=== PATIENT | female | born 1995 | race Caucasian/White ===

== ENCOUNTER 2018-11-16 15:17 | Emergency (ER) | payer OTHER ==
[~2018-11-16] VITALS: Ht 180.3 cm; Wt 107.3 kg
[2018-11-16] MEDS ORDERED: prenatal vit (15:24)
[2018-11-16] MEDS ORDERED: ONDANSETRON 4 MG ORAL DISINTEGRATING TAB (Q0162 PER 1MG) PO ONE (18:00)
[2018-11-16] MEDS ORDERED: ACETAMINOPHEN 500 MG TAB PO ONE (18:00)
[2018-11-16] MEDS ORDERED: KEFL500C17 PO (19:43)
[2018-11-16] MEDS ORDERED: CEPHALEXIN 500 MG CAP PO ONE (19:45)
[2018-11-16 19:50] VITALS: BP 100/56
--- NOTE | 2018-11-16 19:57 | REPVR ---
EXAM: US After First Trimester, Transabdominal EXAM DATE/TIME: 11/16/2018 6:38 PM CLINICAL HISTORY: 23 years old, female; complicated by abdominal or pelvic pain; Right lower quadrant; Second trimester; Gestational age or lmp: [id number]; ; Additional info: 16 weeks, pelvic cramping TECHNIQUE: Imaging protocol: Real-time transabdominal obstetrical ultrasound of the maternal pelvis and a second or third trimester with image documentation. COMPARISON: No relevant prior studies available. FINDINGS: GESTATION: Gestation: Single fetus in the uterus. Heart rate: heart rate 155 beats per minute. Presentation: Currently in cephalic presentation. Placenta: Unremarkable. No subchorionic bleed. Right lateral. Amniotic fluid: Amniotic fluid is normal for gestational age. Head, face, and neck: Head, face, and neck anatomy are obscured by position. Heart: Heart is obscured by position. Abdomen: Abdominal anatomy is obscured by position. Umbilical cord and insertion: Umbilical cord insertion is obscured by position. Spine: Spinal anatomy is obscured by position. Extremities: Extremities are obscured by position. BIOMETRY: Estimated gestational age: Gestational age based on average ultrasound measurements is 16 weeks 2 days versus 16 weeks 4 days using LMP of 07/23/2018. Estimated due date: Estimated weight: Estimated weight is 156 g (38th percentile). Biparietal diameter: BPD 3.5 cm Head circumference: Head circumference 12.6 cm. Abdominal circumference: Abdominal circumference 10.5 cm. Femur length: Femur length 2.1 cm. MATERNAL: Uterus: Unremarkable. Cervix: Unremarkable. IMPRESSION: Unremarkable scan at 16 weeks 2 days-4 days as described above. Followup evaluation in 19-20 weeks can be performed for a detailed structural survey if clinically desired. Electronically signed by: Eric Quevedo On 11/16/2018 19:57:31 PM
== END 2018-11-16 19:54 | disposition home or self-care (01) ==
LOC: M ED 17:46
DX: N39.0 Urinary tract infection, site not specified (principal)
CPT/HCPCS: 76811; 81001; 87086; 99283; Q0162

== ENCOUNTER 2019-02-22 16:29 | Outpatient (CLI) | payer OTHER ==
[~2019-02-22] VITALS: Ht 177.8 cm; Wt 106.3 kg
[~2019-02-22 16:29] MED LIST: KEFL500C17 PO; prenatal vit
[2019-02-22 16:46] VITALS: BP 118/58
[2019-02-22 16:47] VITALS: BP 118/58
[2019-02-22 16:54] VITALS: BP 118/58
--- NOTE | 2019-02-22 17:55 | IPNPDOC ---
Obstetrical Progress Note Date of Service Feb 22, 2019 Subjective 23yo at 30+4wks presents to triage s/p fall at noon; presented to LND >4 hours from fall. Pt reports slipping on water and falling back on her glutes; she denies striking her abdomen. Pt reports +FM, denies LOF/VB/CTX. Pt thinks she may have pulled a muscle on her lower left abdomen when she braced her fall. Pt's complicated by obesity and migraines. Objective O: VSS; no pain with palpation of abdomen FHR 135, moderate variability, + accels, no decels noted Contraction x1, pt denies feeling anything, uterus soft by palpation Vital Signs Date Time Temp Pulse Resp B/P (MAP) Pulse Ox O2 Delivery O2 Flow Rate FiO2 02/22/19 16:54 97.8 79 16 118/58 (78) 98 Room Air Assessment Heart Rate Tracing: Category I Assessment and Plan Status: Reassuring Additional Comments A: 23yo with reassuring tracing, Category I, s/p fall on glutes. P: Pt discharged home with appropriate 3rd trimester precautions. Discussed safe medications and pain control options (tylenol, heat packs) Pt verbalized an understanding of all. BREE SHEEHAN CNM Feb 22, 2019 17:55
== END 2019-02-22 17:55 | disposition home or self-care (01) ==
LOC: M LDO 16:29
PROVIDERS: ATTEND Registered Nurse Maternal Newborn
DX: Z04.3 Encounter for examination and observation following other accident (principal); W01.0XXA Fall on same level from slipping, tripping and stumbling without subsequent striking against object, initial encounter; Y92.89 Other specified places as the place of occurrence of the external cause; Y93.89 Activity, other specified; Y99.8 Other external cause status; Z3A.30 30 weeks gestation of pregnancy
CPT/HCPCS: 59025; G0378; G0463

== ENCOUNTER 2019-04-28 19:29 | Outpatient (CLI) | payer OTHER ==
[~2019-04-28] VITALS: Ht 180.3 cm; Wt 112.4 kg
[2019-04-28 19:47] VITALS: BP 125/67
--- NOTE | 2019-04-28 22:13 | IPNPDOC ---
Text Note Date of Service The patient was seen on 04/28/19. NOTE patient is a 23 yo @ 39+5wks gestation presents with painful contractions. denies VB/LOF. +fm vitals: normal nad fht: 135/mod rosa/pos accel/no decel toco: irregular ctx ce: 06/04/3 (per nursing check) a/p patient not in labor. discussed s/s to return. f/u with clinic as scheduled. do cynede VS,[place], I+O VS, Beee, I+O Vital Signs Date Time Temp Pulse Resp B/P (MAP) Pulse Ox O2 Delivery O2 Flow Rate FiO2 04/28/19 19:47 97.2 114 125/67 (86) 98 ANGY YARBROUGH DO Apr 28, 2019 22:13
== END 2019-04-28 21:30 | disposition home or self-care (01) ==
LOC: M LDO 19:29
PROVIDERS: ATTEND Obstetrics & Gynecology
DX: O26.893 Other specified pregnancy related conditions, third trimester (principal); O47.1 False labor at or after 37 completed weeks of gestation; Z3A.39 39 weeks gestation of pregnancy
CPT/HCPCS: 59025; G0378; G0463

== ENCOUNTER 2019-05-05 14:58 | Inpatient (IN) | payer OTHER ==
[2019-05-05] VITALS (8 sets, daily range): BP systolic 109–129; BP diastolic 53–73
[~2019-05-05] VITALS: Ht 180.3 cm; Wt 111.9 kg
[2019-05-05] MEDS ORDERED: LR 1,000 ML IV SCH (15:44)
[2019-05-05] MEDS ORDERED: LACTATED RINGER'S 1000 ML IV STA (15:44)
[2019-05-05 16:46] LABS: HEMATOCRIT 36.8 % (36.0-47.0); HEMOGLOBIN 11.9 g/dl (12.0-15.5); MEAN CORPUSCULAR HGB CONC 32.3 g/dl (32.0-36.5); MEAN CORPUSCULAR VOLUME 83.4 fl (80.0-96.0); PLATELET COUNT, AUTOMATED 223 10^3/uL (150-450); RED BLOOD COUNT 4.41 10^6/uL (4.00-5.40); WHITE BLOOD COUNT 12.7 10^3/uL (4.0-10.0)
[2019-05-05] MEDS ORDERED: FENTANYL 2MCG/ML ROPIVACAINE 0.2% IN 0.9% NACL 100ML IVBAG As Ordered ONE (17:16)
[2019-05-05] MEDS ORDERED: ONDANSETRON 4MG/2ML VIAL (J2405) IV PRN (18:15)
[2019-05-05] MEDS ORDERED: EPIDURAL COMMENT XX SCH (18:15)
[2019-05-05] MEDS ORDERED: LACTATED RINGER'S 1000 ML IV PRN (18:15)
[2019-05-05] MEDS ORDERED: FENTANYL/ROPIVACAINE/NACL BAG 100 ML EPIDURAL SCH (18:15)
[2019-05-05] MEDS ORDERED: diphenhydrAMINE INJ 50MG/ML VIAL (J1200) IV PRN (18:15)
[2019-05-05] MEDS ORDERED: NALOXONE INJ 0.4 MG/1 ML VIAL (J2310) IV PRN (18:15)
[2019-05-05] MEDS ORDERED: REFRIGERATOR IV KEYS XX PRN (18:15)
[2019-05-05] MEDS ORDERED: ePHEDrine SULFATE 25 MG/5 ML(5MG/ML) SYRINGE IV PRN (18:15)
[2019-05-05] MEDS ORDERED: EPIDURAL/PCA KEYS XX PRN (18:15)
--- NOTE | 2019-05-05 18:30 | IPNPDOC ---
Text Note Date of Service The patient was seen on 05/05/19. NOTE Triage Note Padmini is comfortable with epidural, only feeling slight pain over her pubic area. Vitals wnl, afebrile Cat I FHRT with +accels, -decels, mod rosa [place]: ctx 2-4min SCE 6/80/-2, AROM performed with clear fluid noted Will continue to expectantly manage and closely observe Plan to re-check in 2 to 4 hours Safe to proceed Dr. Supriya Malone MD VS,[place], I+O VS, [place], I+O Laboratory Tests 05/05/19 16:32 Supriya Malone MD May 05, 2019 18:30
[2019-05-05] MEDS ORDERED: OXYTOCIN 30 UNITS IN 0.9% NaCl 500ML IV BAG (J2590) As Ordered ONE (20:17)
[2019-05-05] MEDS ORDERED: OXYTOCIN DRIP 30 UNITS in IV 1 EA IV SCH (20:42)
[2019-05-05] MEDS ORDERED: MEASLES,MUMPS,RUBELLA VACCINE INJ (MMR-II) (90707) SC SCH (20:45)
[2019-05-05] MEDS ORDERED: ACETAMINOPHEN TAB 650MG DOSE (2X325MG) PO PRN (20:45)
[2019-05-05] MEDS ORDERED: DIBUCAINE 1% OINTMENT 30GM TOP PRN (20:45)
[2019-05-05] MEDS ORDERED: DOCUSATE SODIUM 100 MG CAP PO PRN (20:45)
[2019-05-05] MEDS ORDERED: RHOGAM 300 MCG (1500 IU) INJ (J2790) IM SCH (20:45)
[2019-05-05] MEDS ORDERED: IBUPROFEN 600 MG TAB PO PRN (20:45)
--- NOTE | 2019-05-05 20:50 | DNPDOC ---
[facility] Delivery Note Delivery Note DATE OF DELIVERY: 05 May 2019 PREDELIVERY DIAGNOSIS: 40w6d gestation and labor. POST DELIVERY DIAGNOSIS: Delivered. PROCEDURE: Spontaneous vaginal delivery SPORTS MEDIA: Dr. Supriya Malone MD ANESTHESIA: epidural ESTIMATED BLOOD LOSS: 200 mL. FINDINGS: 8 pound 5 ounce (3760g) male , Score 9/9, nuchal cord times 1 DELIVERY SUMMARY: Padmini is a 23yo [id number] s/p uncomplicated at 40w6d after presenting in active labor, delivering at 2023 on 05/05/2019. She presented at 4cm, had AROM with clear fluid at 6cm, and received an epidural. She reached C/C/+1 and began pushing. With 2 sets of pushes, infant's head delivered OA, restituted JER. Nuchal cord reduced. Right anterior shoulder delivered followed by posterior shoulder and corpus. Infant was vigorous, had spontaneous cry, placed on maternal chest, apgars 9/9, nose and mouth suctioned with bulb suction. Cord was clamped x2 and cut by FOB. Infant went to warmer for further suctioning. With traction on the cord and uterine massage, placenta delivered spontaneously and intact with 3 vessel centrally inserted cord. More uterine massage performed with fundus then firm at u-2cm. Inspection of perineum and vagina revealed some small, superficial labial abrasions which were reapproximated with figures of 8 using 4-0 vicryl with complete hemostasis noted. All counts correct x2. Mom and infant were doing well when I left the room. MD Faisal Lechuga Katrina D MD May 05, 2019 20:50
--- NOTE | 2019-05-05 21:06 | HPEPDOC ---
Obstetrical History & Physical General Date of Admission May 05, 2019 at 15:45 History of Present Illness Padmini is a 23yo with SIUP at 40w6d by early u/s presenting to L&D with regular painful ctx. She was seen by me in the office this morning for routine APFT nearing post-dates, and she noted regular ctx since 0600. I checked her then and swept her membranes, she was 2/80/-2. She states ctx now more painful and closer together. No LOF. No vaginal bleeding. Good movement. No f/c/n/v/CP/SOB. Chief Complaint: Contractions, term Information Provided By: Patient Care Care: Good Care Dating Final EDC: Apr 29, 2019 Final EDC by: 1st trimester (US) Antepartum Course Diagnos(e)s Obesity (starting BMI 32), hx of thyroid goiter with normal TSH during Height (inches): 71 Pre- weight (lbs.): 230 Admission Weight (lbs.): 247 Change in Weight (lbs.): 17 Past Medical History Past Obstetrical History : Past Obstetrical History: Multigravida (06/17/2016 at 41wk, 8lb6oz no complications) Type of Delivery: Spontaneous Vaginal Del. 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: No pertinent history Past Medical History Medical History Obesity (starting BMI 32), hx of thyroid goiter with normal TSH during , occasional migraines Surgical History: Breast reduction, Tonsilectomy Family History Significant Family History: No pertinent family hx Social History Marital Status: Family situation: Spouse/partner home Psychosocial History: No pertinent psych hx * Smoker: non-smoker Alcohol: Denies Drugs: denies Imunizations Influenza Status: declined Allergies Coded Allergies: No Known Allergies (Unverified , 05/05/19) Medications Miscellaneous Medications [ vit] Physical Examination Physical Examination GENERAL: Alert and oriented times three. ABDOMEN: Gravid and non-tender to touch. FETUS: Is vertex (VTX) by sterile vaginal examination (SVE) EXTREMITIES: No edema BLE Vital Signs/I&O Vital Signs Date Time Temp Pulse Resp B/P (MAP) Pulse Ox O2 Delivery O2 Flow Rate FiO2 05/05/19 19:24 67 18 109/53 (71) Laboratory Data 24H LABS Laboratory Tests 2 05/05/19 15:54: Serology Scanned Report Hepatitis B Testing 05/05/19 16:32: Nucleated Red Blood Cells % (auto) 0.0 CBC/BMP Laboratory Tests 05/05/19 16:32 Pertinent Laboratoy Data Blood Type: A+ RBC Antibody Screen: Negative HIV: Negative Hepatitis B: Negative Hepatitis C: Unknown Rapid Plasma Reagin: Nonreactive Rubella: Immune Varicella: Nonreactive Chlamydia/Gonorrhea: Negative Group B Streptococcus: Negative Glucose Tolerance Test: 91 Anatomy Ultrasound Ultrasound Date: Dec 15, 2018 Placenta Location: Posterior Normal Anatomy: Yes (0.2cm punctate EIF in left cardiac ventricle) Placenta Previa: No Steroid Therapy Steroid Therapy: No Vaginal Examination Dilation: 4 cm Effacement: 80% Station: -2 Cervical Consistency: Soft Cervical Position: Middle Presentation: Cephalic presentation Assessment Heart Rate (FHR): 140 Variability: Moderate Accelerations: Positive Decelerations: None Tocometer Contractions: Yes Frequency: regular Duration: greater than 60 seconds Strength: palpated as strong Assessment/Plan Assessment Padmini is a 23yo with SIUP at 40w6d by early u/s in active labor with SCE 4/80/-2. Ctx q3-5min. Cephalic by SCE. Vitals wnl, benign exam. Cat I FHRT. GBS neg. course/PMHx significant for: Obesity (starting BMI 32), hx of thyroid goiter with normal TSH during Plan Admit and orient. Rest[employer] and consent. Diet: clear liquids Group B Streptococcus (GBS) negative Labs and intravenous (IV) per unit protocol. Lactated Ringers (LR): Bolus 1000 mL, then at 125 mL/hr. Anticipate normal spontaneous delivery () Candidate for epidural as desired MD Faisal Lechuga Katrina D MD May 05, 2019 21:06
[2019-05-06] MEDS: IBUPROFEN 800 MG TAB PO PRN ×3 (01:01→16:19)
[2019-05-06] MEDS: ACETAMINOPHEN 500 MG TAB PO PRN ×2 (03:57→23:28)
--- NOTE | 2019-05-06 05:17 | IPNPDOC ---
Progress Note Date of Service: May 06, 2019 Day#: 1 Progress Note PPD 1 SUBJECT: Padmini is a 23yo [id number] s/p uncomplicated at 40w6d after presenting in active labor, delivering at 2023 on 05/05/2019, doing well day # 1. She has ambulated without lightheadedness/dizziness, voiding spontaneously without issue and tolerating clear liquids so far. Bottle feeding by choice. Reports lochia is like a heavy period so far but no large clots. No f/c/n/v/SOB/CP. OBJECTIVE: VITAL SIGNS: Within normal limits, afebrile. Alert and oriented times three. Abdomen: Fundus firm at U-2. Soft, NTTP. Extremities: no pain with palpation of calves ASSESSMENT: Padmini is a 23yo [id number] s/p uncomplicated at 40w6d after presenting in active labor, delivering at 2023 on 05/05/2019, doing well day # 1. Vitals within normal limits, afebrile, hemodynamically stable with no evidence of infection. PLAN: 1. Routine care 2. Tylenol and Motrin for pain. 3. Encourage ambulation and good hydration. 4. Regular diet 5. Possible discharge home tomorrow if meeting all milestones 6. Interested in minipill for contraception Dr. Supriya Malone MD VS, I&O, 24H, Fishbone Vital Signs/I&O Vital Signs Date Time Temp Pulse Resp B/P (MAP) Pulse Ox O2 Delivery O2 Flow Rate FiO2 05/05/19 23:40 98.2 75 17 115/63 (80) 96 Room Air I&O- Last 24 Hours up to 6 AM 05/06/19 06:00 Intake Total 1000 ml Output Total 1350 ml Balance -350 ml Laboratory Data 24H LABS Laboratory Tests 2 05/05/19 15:54: Serology Scanned Report Hepatitis B Testing 05/05/19 16:32: Nucleated Red Blood Cells % (auto) 0.0 CBC/BMP Laboratory Tests 05/05/19 16:32 Supriya Malone MD May 06, 2019 05:17
[2019-05-06 05:54] VITALS: BP 126/63
[2019-05-06] MEDS: PRENATAL VITAMINS CHEWABLE TABLET PO SCH (08:49)
[2019-05-06 18:08] VITALS: BP 120/71
[2019-05-07] MEDS: IBUPROFEN 800 MG TAB PO PRN ×2 (01:35→08:11)
[2019-05-07 05:49] VITALS: BP 117/59
[2019-05-07] MEDS ORDERED: DIBU10OI TOP (07:55)
[2019-05-07] MEDS ORDERED: IBUP80TA PO (07:55)
[2019-05-07] MEDS ORDERED: ACET-683 PO (07:55)
--- NOTE | 2019-05-07 07:58 | DS.PDOC ---
Discharge Summary General Date of Admission May 05, 2019 at 15:45 Date of Discharge May 07, 2019 Discharge Summary HOSPITAL COURSE: Ms. Brown is a 23 yo G2 now P2 who underwent an uncomplicated on 05May2019 after being admitted for active labor. Her course was unremarkable. On her day of discharge she met all appropriate discharge criteria. She was ambulating, voiding, tolerating a regular diet, had minimal lochia, and minimal pain. DISCHARGE MEDICATIONS: Please see below. ALLERGIES: Please see below. PHYSICAL EXAMINATION ON DISCHARGE: VITAL SIGNS: Please see below. GENERAL: AAOX3, sitting up in bed, NAD ABDOMINAL EXAMINATION: Fundus firm at U-2. No fundal tenderness EXTREMITIES: Mild edema in lower extremities PSYCHIATRIC EXAMINATION: Affect appropriate LABORATORY DATA: Please see below. ACTIVITY: Pelvic rest for 6 weeks. DIET: Regular DISCHARGE PLAN: Discharge home or to boarder DISPOSITION: Discharge home or to boarder status on 07May2019. DISCHARGE INSTRUCTIONS: 1. Pelvic rest for 6 weeks ITEMS TO FOLLOWUP ON ON OUTPATIENT: 1. visit in 6 weeks DISCHARGE CONDITION: Stable. TIME SPENT ON DISCHARGE: Greater than 20 minutes. Rebecca Maier DO Vital Signs/I&Os Vital Signs Date Time Temp Pulse Resp B/P (MAP) Pulse Ox O2 Delivery O2 Flow Rate FiO2 05/07/19 05:49 97.5 72 17 117/59 (78) 05/06/19 05:54 98 Room Air I&O- Last 24 Hours up to 6 AM 05/07/19 05:59 Intake Total 800 ml Output Total 150 ml Balance 650 ml Discharge Medications Scheduled PRN Acetaminophen (Acetaminophen) 500 Mg Tablet, 1,000 MG PO Q6HP PRN for PAIN LEVEL 6-10 Dibucaine (Dibucaine) 28 Gm Oint...g., 0 DOSE TOP Q4HP PRN for PAIN Ibuprofen (Ibuprofen) 800 Mg Tablet, 800 MG PO Q8HP PRN for PAIN LEVEL 6-10 Miscellaneous Medications [ vit] , (Reported) Allergies Coded Allergies: No Known Allergies (Unverified , 05/05/19) REBECCA MAIER DO May 07, 2019 07:58
[2019-05-07] MEDS: PRENATAL VITAMINS CHEWABLE TABLET PO SCH (08:11)
[2019-05-07] MEDS: ACETAMINOPHEN 500 MG TAB PO PRN (13:59)
== END 2019-05-07 14:55 | disposition home or self-care (01) | DRG 807 ==
LOC: M LDO 14:58 → M LDI 15:45 → M OBS 23:23
PROVIDERS: ADMIT Obstetrics & Gynecology; ATTEND Obstetrics & Gynecology
PROC: 10E0XZZ Delivery of Products of Conception, External Approach (ICD-10-PCS; principal; 2019-05-05)
PROC: 10907ZC Drainage of Amniotic Fluid, Therapeutic from Products of Conception, Via Natural or Artificial Opening (ICD-10-PCS; 2019-05-05)
DX: O48.0 Post-term pregnancy (principal); Z37.0 Single live birth; Z3A.40 40 weeks gestation of pregnancy; E66.9 Obesity, unspecified; O99.214 Obesity complicating childbirth; Z68.32 Body mass index [BMI] 32.0-32.9, adult; O69.82X0 Labor and delivery complicated by other cord entanglement, without compression, not applicable or unspecified